=== PATIENT | male | born 1945 | race Caucasian/White ===

== ENCOUNTER → 2018-07-26 | Outpatient (CLI) | payer MEDICARE ==
--- NOTE | 2018-07-26 12:28 | XR ---
EXAMINATION TYPE: XR ribs LT w pa chest xray DATE OF EXAM: 07/26/2018 CLINICAL HISTORY: Left lower rib pain for 2 months. TECHNIQUE: Single frontal view of the chest is obtained. A frontal and oblique images of the left-ti ed ribs are acquired. COMPARISON: None FINDINGS: There are scattered calcified nodules are granulomas seen bilaterally. There is chronic pa renchymal change without suspicious focal air space opacity, pleural effusion, or pneumothorax seen. The cardiac silhouette size is within normal limits. Multilevel spurring in the thoracic spine is pr esent. Dedicated image of the left-sided ribs show no acute displaced fractures. Overlying soft tissue is un remarkable. IMPRESSION: 1. Chronic changes without acute pulmonary process. 2. No acute displaced left-sided rib fractures are seen.
== END | disposition home or self-care (01) ==
LOC: RADXRYALE 12:02
PROVIDERS: ATTEND Family Medicine
DX: R91.8 Other nonspecific abnormal finding of lung field (principal); R07.81 Pleurodynia; R07.89 Other chest pain

== ENCOUNTER → 2021-06-24 | Outpatient (CLI) | payer MEDICARE | END | disposition home or self-care (01) | LOC: RADNMMAIN 10:19 | PROVIDERS: ATTEND Family Medicine | DX: Z53.9 Procedure and treatment not carried out, unspecified reason (principal) ==

== ENCOUNTER 2021-08-25 05:50 | Day surgery (SDC) | payer MEDICARE ==
[2021-08-23 14:34] VITALS: BMI 31.8
[~2021-08-25 05:50] MED LIST: ALPRAZolam 0.25 MG TAB PO PRN; ALPRAZolam 0.5 MG TAB PO PRN; ASPIRIN 325 MG TAB PO STA; ATORVASTATIN 80 MG TAB PO STA; HEPARIN SODIUM,PORCINE 10,000 UNIT in SODIUM CHLORIDE 0.9% 1,000 ML IRRIGATION PRN; HEPARIN SODIUM,PORCINE 2,500 UNIT in SODIUM CHLORIDE 0.9% 250 ML IRRIGATION PRN; NITROGLYCERIN SL TABS 0.4 MG TAB SUBLINGUAL PRN; SODIUM CHLORIDE 0.9% 1,000 ML in EMPTY BAG 1 BAG IV SCH
[2021-08-25 06:16] VITALS: RESP 18; TEMP 98.4
[2021-08-25] MEDS ORDERED: SODIUM CHLORIDE 0.9% 1,000 ML IV ONE (06:18)
[2021-08-25 06:24] LABS: Basophils # (A) 0.1 k/uL (0-0.2); Basophils % (A) 1 %; Eosinophils # (A) 0.3 k/uL (0-0.7); Eosinophils % (A) 5 %; HCT 45.3 % (39.0-53.0); HGB 14.8 gm/dL (13.0-17.5); Lymphocytes # (A) 1.7 k/uL (1.0-4.8); Lymphocytes % (A) 27 %; MCH 29.6 pg (25.0-35.0); MCHC 32.6 g/dL (31.0-37.0); MCV 90.8 fL (80.0-100.0); Mean Platelet Volume 7.4; Monocytes # (A) 0.5 k/uL (0-1.0); Monocytes % (A) 7 %; Neutrophils # (A) 3.7 k/uL (1.3-7.7); Neutrophils % (A) 57 %; Platelet Count 224 k/uL (150-450); RBC 4.99 m/uL (4.30-5.90); RDW 12.8 % (11.5-15.5); WBC 6.6 k/uL (3.8-10.6)
[2021-08-25 07:03] LABS: Calcium 8.7 mg/dL (8.4-10.2); Potassium 4.2 mmol/L (3.5-5.1)
[2021-08-25] MEDS ORDERED: HEPARIN SODIUM 1,000 UN/ML (10ML VL) ONE (07:11)
[2021-08-25] MEDS ORDERED: VERAPAMIL 2.5 MG/ML 2 ML AMP ONE (07:11)
[2021-08-25] MEDS ORDERED: fentaNYL (PF) 50 MCG/ML 2 ML AMP ONE (07:35)
[2021-08-25] MEDS ORDERED: MIDAZOLAM 2 MG/2 ML VIAL IV ONE (07:38)
[2021-08-25] MEDS ORDERED: fentaNYL (PF) 50 MCG/ML 2 ML AMP IV ONE (07:38)
[2021-08-25] MEDS ORDERED: LIDOCAINE 1% INJ 10MG/ML (5 ML VIAL-PF) SQ ONE (07:44)
[2021-08-25] MEDS ORDERED: VERAPAMIL SYRINGE (5 MG/10 ML) INTRAARTER ONE (07:45)
[2021-08-25] MEDS ORDERED: HEPARIN SODIUM 1,000 UN/ML (10ML VL) IV ONE (07:46)
[2021-08-25] MEDS ORDERED: IOPAMIDOL-370 125ML BTL INJ ONE (07:55)
--- NOTE | 2021-08-25 08:04 | P.CARDCATH ---
Description of Procedure: PROCEDURES PERFORMED: Left heart catheterization, bilateral coronary angiography INDICATION: Abnormal stress test HISTORY: Patient is a pleasant 76-year-old male with history of hypertension, hyperlipidemia who has been fairly asymptomatic with mild dyspnea on exertion. He had a stress test where he could not his heart rate elevated enough and Lexiscan stress test showed concern of large area of infarction with isabel- infarct ischemia in the inferior distribution. Therefore heart catheterization was recommended. CONSENT:I have discussed the risks, benefits and alternative therapies for the above-mentioned procedure and for both sedation/analgesia as well as necessary blood product administration, if indicated, as they pertain to this patient. The patient has indicated understanding and acceptance of the risks and procedures discussed. PROCEDURE: After the risks, benefits and alternatives of the above mentioned procedure explained in detail with the patient, informed consent was obtained. Patient was taken to the catheterization lab and prepped and draped in usual fashion. 1% lidocaine was used to anesthetize the right radial artery. A 6- Danish sheath was placed in the right radial artery using modified Seldinger technique. Left coronary angiography was performed with a 5-Danish JL 3.5 catheter and right coronary angiography was performed with a 5-Danish JR5 catheter in various views. A 5-Danish FR5 catheter was inserted into the left ventricle and pressure measurements were obtained. The right radial sheath was removed and a TR band was placed with hemostasis achieved. The patient tolerated the procedure well. Patient was transported back to the post catheterization holding area in stable condition. Conscious Sedation: Patient was monitored under the direct supervision of vision of myself for conscious sedation using Versed and fentanyl for a total duration of 15 minutes HEMODYNAMICS: Aorta: 142/78 LV: 138/5, LVEDP 20 SELECTIVE CORONARY ARTERIOGRAPHY: LEFT MAIN: The left main is a large caliber vessel which gives rise to the LAD with the circumflex coming off the RCA. There is no significant stenosis. LEFT ANTERIOR DESCENDING CORONARY ARTERY: LAD is a large caliber vessel which wraps around to the apex. There is diffuse have a calcium with a proximal LAD 20-30% stenosis and a long mid LAD 50% stenosis. There is an ostial diagonal 160% stenosis which is small caliber. ANOMOLOUS CIRCUMFLEX CORONARY ARTERY: The circumflex comes off the proximal RCA and is a moderate caliber vessel without significant stenosis. RIGHT CORONARY ARTERY: The right coronary artery is a large caliber vessel which gives off a PDA and PLV branch and is the dominant vessel. There is proximal R CA 30% stenosis. FINAL IMPRESSION: 1. Mild to moderate nonobstructive CAD as described above including mid LAD 50% stenosis, ostial diagonal 1 60% stenosis, RCA 30% stenosis. 2. Anomalous circumflex coming off the RCA 3. Mildly elevated left sided filling pressures PLAN: 1. Aggressive risk factor modification per most recent ACC/AHA guidelines. 2. CAD is only mild to moderate and patient relatively asymptomatic. Continue with medical therapy. Increase cholesterol regimen.
[2021-08-25 11:58] VITALS: BP 106/56; PULSE 56
== END 2021-08-25 12:08 | disposition home or self-care (01) ==
LOC: CATHCVL 05:50
PROVIDERS: ATTEND Internal Medicine
DX: I25.10 Atherosclerotic heart disease of native coronary artery without angina pectoris (principal); I10 Essential (primary) hypertension; E78.5 Hyperlipidemia, unspecified; I44.7 Left bundle-branch block, unspecified; F17.210 Nicotine dependence, cigarettes, uncomplicated; Z20.822 Contact with and (suspected) exposure to COVID-19; Z79.899 Other long term (current) drug therapy
CPT/HCPCS: 93458; 80048; 85025; 87635; C1769 ×2; C1894; J2250; J2001; J3010; J1644; Q9967

== ENCOUNTER → 2022-10-10 | Outpatient (CLI) | payer MEDICARE ==
--- NOTE | 2022-10-10 08:58 | XR ---
EXAMINATION TYPE: XR shoulder complete RT DATE OF EXAM: 10/10/2022 8:50 AM INDICATION: Patient age:Male; 77 years old; Reason for study: [id number] RT SHLD PAIN; COMPARISON: Chest radiograph 07/26/2018 TECHNIQUE: The right shoulder was examined in AP, internally rotated and scapular Y projections. . FINDINGS: No evidence of acute osseous pathology, joint dislocation, or soft tissue swelling. No significant linda int space narrowing or spurring. Multiple calcified granulomas noted within the chest redemonstrated. Multiple calcified granulomas within the visualized chest. IMPRESSION: No acute osseous pathology.
== END | disposition home or self-care (01) ==
LOC: RADXRYALE 08:36
PROVIDERS: ATTEND Family Medicine
DX: M25.511 Pain in right shoulder (principal)

== ENCOUNTER 2022-10-14 12:07 | Inpatient (IN) | payer MEDICARE ==
--- NOTE | 2022-10-14 12:42 | ED ---
General Adult HPI - General Chief complaint: Arrhythmia/Palpitations Stated complaint: Bradycardia Time Seen by Provider: 10/14/22 12:26 Source: patient, RN notes reviewed Mode of arrival: ambulatory Limitations: no limitations - History of Present Illness Initial comments: Patient is a pleasant 77-year-old male presenting to the emergency department [facility] concern for bradycardia. No history of similar symptoms previously. Patient has been lightheaded for the past week. Patient did cut was doctor on Sunday and was told his heart rate was 35. Patient was advised to hold his metoprolol here patient is unclear if he has been doing that or not. Patient does have some fatigue associated with his lightheadedness. Patient has also some very mild exertional dyspnea. No chest pain. No history of similar symptoms previously. - Related Data Home Medications Medication Instructions Recorded Confirmed Aspirin [Adult Low Dose Aspirin EC] 81 mg PO DAILY 08/23/21 08/25/21 Cholecalciferol [Vitamin D3 (25 25 mcg PO DAILY 08/23/21 08/25/21 Mcg = 1000 Iu)] Lisinopril-Hctz 20-12.5 mg 1 tab PO DAILY 08/23/21 08/25/21 [Zestoretic 20-12.5] Metoprolol Succinate [Metoprolol 12.5 mg PO DAILY 08/23/21 08/25/21 Succinate ER] [place]-3/Dha/Epa/Fish Oil [Fish Oil 1 cap PO DAILY 08/23/21 08/25/21 1,000 mg Softgel] Previous Rx's Medication Instructions Recorded Atorvastatin [Lipitor] 40 mg PO DAILY #90 tablet 08/25/21 Allergies Allergy/AdvReac Type Severity Reaction Status Date / Time No Known Allergies Allergy Verified 08/25/21 06:05 Review of Systems ROS Statement: Those systems with pertinent positive or pertinent negative responses have been documented in the HPI. ROS Other: All systems not noted in ROS Statement are negative. Constitutional: Denies: fever Eyes: Denies: eye pain ENT: Denies: ear pain Respiratory: Reports: as per HPI. Denies: cough Cardiovascular: Reports: dyspnea on exertion. Denies: chest pain, palpitations Endocrine: Reports: fatigue Gastrointestinal: Denies: abdominal pain Genitourinary: Denies: dysuria Musculoskeletal: Denies: back pain Skin: Denies: rash Neurological: Denies: weakness Past Medical History Past Medical History: Hyperlipidemia, Hypertension Additional Past Medical History / Comment(s): See Dr Frey's H&P. History of Any Multi-Drug Resistant Organisms: None Reported Past Surgical History: No Surgical Hx Reported Additional Past Surgical History / Comment(s): Colonoscopy. [place] teeth extracted. Past Anesthesia/Blood Transfusion Reactions: Motion Sickness Past Psychological History: No Psychological Hx Reported Smoking Status: Former smoker Past Alcohol Use History: Daily Past Drug Use History: None Reported - Past Family History Mother Family Medical History: Cancer General Exam Limitations: no limitations General appearance: alert, in no apparent distress Head exam: Present: normocephalic Eye exam: Present: normal appearance Neck exam: Present: normal inspection Respiratory exam: Present: normal lung sounds bilaterally Cardiovascular Exam: Present: bradycardia, normal heart sounds Expanded Peripheral pulses: 2+: Radial (R), Radial (L), Dorsalis Pedis (R), Dorsalis Pedis (L) GI/Abdominal exam: Present: soft. Absent: tenderness Extremities exam: Present: normal inspection. Absent: pedal edema, calf tenderness Neurological exam: Present: alert Psychiatric exam: Present: normal affect, normal mood Skin exam: Present: normal color Course Vital Signs 10/14/22 10/14/22 10/14/22 12:18 12:56 13:00 Temperature 98.1 F Pulse Rate 35 L 33 L 35 L Pulse Rate [ Heavy Equipment Service Technician ] Respiratory 18 Rate Blood Pressure 151/60 176/81 176/81 O2 Sat by Pulse 97 94 L 95 Oximetry 10/14/22 10/14/22 10/14/22 13:05 13:10 13:20 Temperature Pulse Rate 33 L 33 L 35 L Pulse Rate [ Heavy Equipment Service Technician ] Respiratory 20 Rate Blood Pressure 176/81 166/83 O2 Sat by Pulse 97 94 L 99 Oximetry 10/14/22 10/14/22 10/14/22 13:31 13:40 13:45 Temperature Pulse Rate 33 L 33 L Pulse Rate [ 33 L Heavy Equipment Service Technician ] Respiratory Rate Blood Pressure 179/70 179/70 O2 Sat by Pulse 100 99 Oximetry 10/14/22 10/14/22 10/14/22 13:47 13:50 14:00 Temperature Pulse Rate 41 L 33 L Pulse Rate [ Heavy Equipment Service Technician ] Respiratory 20 Rate Blood Pressure 179/70 179/70 O2 Sat by Pulse 99 99 Oximetry 0810/14/22 10/14/22 14:10 14:20 14:30 Temperature Pulse Rate 33 L 33 L 33 L Pulse Rate [ Heavy Equipment Service Technician ] Respiratory Rate Blood Pressure 179/74 179/74 179/74 O2 Sat by Pulse 98 98 99 Oximetry 10/14/22 14:40 Temperature Pulse Rate 33 L Pulse Rate [ Heavy Equipment Service Technician ] Respiratory Rate Blood Pressure 142/68 O2 Sat by Pulse 98 Oximetry - Reevaluation(s) Reevaluation #1: 10/14/22 12:42 EKG #2 also interpreted by myself shows third-degree heart block with rate of 33. Right axis. Intraventricular conduction delay. Inferior T wave inversion. EKG Findings - EKG Results: EKG: interpreted by NATASHAD (3 heart block with rate of 38. Right axis. Intraventricular conduction delay. Inferior T wave inversion.) Medical Decision Making - Medical Decision Making Was pt. sent in by a medical professional or institution (, PA, WELDING INSPECTOR, urgent care, hospital, or senior care...) When possible be specific @ -Patient was sent in by Dr. Lopez me his office Did you speak to anyone other than the patient for history (EMS, parent, family, police, friend...)? What history was obtained from this source @ -Family is present and helps provide history including recent primary care physician visit Did you review nursing and triage notes (agree or disagree)? Why? @ -I reviewed and agree with nursing and triage notes Were old charts reviewed (outside hosp., previous admission, EMS record, old EKG, old radiological studies, urgent care reports/EKG's, senior care records)? Report findings @ -No old charts were reviewed Differential Diagnosis (chest pain, altered mental status, abdominal pain women, abdominal pain men, vaginal bleeding, weakness, fever, dyspnea, syncope, headache, dizziness, GI bleed, back pain, seizure, CVA, palpatations, mental health, musculoskeletal)? @ -Differential Palpitations Ventricular arrhythmias, atrial arrhythmias, myocardial infarction, anemia, thyrotoxicosis, electrolyte imbalance, hypokalemia, pulmonary embolism, pulmonary disease, drugs, alcohol, anxiety, stress.... This is not meant to be an all-inclusive list. EKG interpreted by me (3pts min.). @ -As above X-rays interpreted by me (1pt min.). @ -Chest x-ray reveals no acute process some chronic changes. CT interpreted by me (1pt min.). @ -None done U/S interpreted by me (1pt. min.). @ -None done What testing was considered but not performed or refused? (CT, X-rays, U/S, labs)? Why? @ -None What meds were considered but not given or refused? Why? @ -None Did you discuss the management of the patient with other professionals (professionals i.e. DrMarilu, PA, WELDING INSPECTOR, lab, RT, psych nurse, rn social work, telehealth director, teacher, campus security officer, case filler)? Give summary @ -Case was discussed earlier with Dr. Campbell who will consult. Case also discussed with Dr. Mora, who will admit covering Dr. Lopez me Was smoking cessation discussed for >3mins.? @ -No Was critical care preformed (if so, how long)? @ -No Were there social determinants of health that impacted care today? How? (Homelessness, low income, unemployed, alcoholism, drug addiction, transportation, low edu. Level, literacy, decrease access to med. care, correction, rehab)? @ -No Was there de-escalation of care discussed even if they declined (Discuss DNR or withdrawal of care, Hospice)? DNR status @ -No What co-morbidities impacted this encounter? (DM, HTN, Smoking, COPD, CAD, Cancer, CVA, ARF, Chemo, Hep., AIDS, mental health diagnosis, sleep apnea, morbid obesity)? @ -None Was patient admitted / discharged? Hospital course, mention meds given and route, prescriptions, significant lab abnormalities, going to OR and other pertinent info. @ -Patient reevaluated. Patient and family updated on results and plan. Blood pressure has remained stable. Patient will be admitted. Admission orders written. Undiagnosed new problem with uncertain prognosis? @ -No Drug Therapy requiring intensive monitoring for toxicity (Heparin, Nitro, Insulin, Cardizem)? @ -No Were any procedures done? @ -No Diagnosis/symptom? @ -Heart block Acute, or Chronic, or Acute on Chronic? @ -Acute Uncomplicated (without systemic symptoms) or Complicated (systemic symptoms)? @ -default Side effects of treatment? @ -No Exacerbation, Progression, or Severe Exacerbation? @ -No Poses a threat to life or bodily function? How? (Chest pain, [place], [place], pneumonia, PE, COPD, DKA, ARF, appy, cholecystitis, CVA, Diverticulitis, Homicidal, Suicidal, threat to staff... and all critical care pts) @ -No - Lab Data Result diagrams: 10/14/22 12:35 10/14/22 12:35 Lab Results 10/14/22 10/14/22 10/14/22 Range/Units 12:35 12:35 12:35 WBC 8.7 (3.8-10.6) k/uL RBC 4.90 (4.30-5.90) m/uL Hgb 14.5 (13.0-17.5) gm/dL Hct 43.2 (39.0-53.0) % MCV 88.2 (80.0-100.0) fL MCH 29.6 (25.0-35.0) pg MCHC 33.6 (31.0-37.0) g/dL RDW 13.0 (11.5-15.5) % Plt Count 223 (150-450) k/uL MPV 8.2 Neutrophils % 73 % Lymphocytes % 17 % Monocytes % 7 % Eosinophils % 1 % Basophils % 0 % Neutrophils # 6.3 (1.3-7.7) k/uL Lymphocytes # 1.5 (1.0-4.8) k/uL Monocytes # 0.6 (0-1.0) k/uL Eosinophils # 0.1 (0-0.7) k/uL Basophils # 0.0 (0-0.2) k/uL PT 11.0 (9.0-12.0) sec INR 1.0 (<1.2) APTT 22.2 (22.0-30.0) sec Sodium 142 (137-145) mmol/L Potassium 4.8 (3.5-5.1) mmol/L Chloride 102 (98-107) mmol/L Carbon Dioxide 28 (22-30) mmol/L Anion Gap 12 mmol/L BUN 21 H (9-20) mg/dL Creatinine 0.87 (0.66-1.25) mg/dL Est GFR (CKD-EPI)AfAm >90 (>60 ml/min/1.73 sqM) Est GFR (CKD-EPI)NonAf 82 (>60 ml/min/1.73 sqM) Glucose 101 H (74-99) mg/dL Calcium 9.4 (8.4-10.2) mg/dL Magnesium 1.9 (1.6-2.3) mg/dL Total Bilirubin 0.7 (0.2-1.3) mg/dL AST 24 (17-59) U/L ALT 33 (4-49) U/L Alkaline Phosphatase 87 (38-126) U/L Troponin I (0.000-0.034) ng/mL Total Protein 7.6 (6.3-8.2) g/dL Albumin 4.3 (3.5-5.0) g/dL TSH 0.969 (0.465-4.680) mIU/L Free T4 1.04 (0.78-2.19) ng/dL Free T3 pg/mL 3.8 (2.8-5.3) pg/ml 10/14/22 Range/Units 12:35 WBC (3.8-10.6) k/uL RBC (4.30-5.90) m/uL Hgb (13.0-17.5) gm/dL Hct (39.0-53.0) % MCV (80.0-100.0) fL MCH (25.0-35.0) pg MCHC (31.0-37.0) g/dL RDW (11.5-15.5) % Plt Count (150-450) k/uL MPV Neutrophils % % Lymphocytes % % Monocytes % % Eosinophils % % Basophils % % Neutrophils # (1.3-7.7) k/uL Lymphocytes # (1.0-4.8) k/uL Monocytes # (0-1.0) k/uL Eosinophils # (0-0.7) k/uL Basophils # (0-0.2) k/uL PT (9.0-12.0) sec INR (<1.2) APTT (22.0-30.0) sec Sodium (137-145) mmol/L Potassium (3.5-5.1) mmol/L Chloride (98-107) mmol/L Carbon Dioxide (22-30) mmol/L Anion Gap mmol/L BUN (9-20) mg/dL Creatinine (0.66-1.25) mg/dL Est GFR (CKD-EPI)AfAm (>60 ml/min/1.73 sqM) Est GFR (CKD-EPI)NonAf (>60 ml/min/1.73 sqM) Glucose (74-99) mg/dL Calcium (8.4-10.2) mg/dL Magnesium (1.6-2.3) mg/dL Total Bilirubin (0.2-1.3) mg/dL AST (17-59) U/L ALT (4-49) U/L Alkaline Phosphatase (38-126) U/L Troponin I <0.012 (0.000-0.034) ng/mL Total Protein (6.3-8.2) g/dL Albumin (3.5-5.0) g/dL TSH (0.465-4.680) mIU/L Free T4 (0.78-2.19) ng/dL Free T3 pg/mL (2.8-5.3) pg/ml Disposition Clinical Impression: Heart block Disposition: ADMITTED IP TO THIS HOSP Is patient prescribed a controlled substance at d/c from ED?: No Referrals: Manolo Torres DO [Primary Care Provider] - 1-2 days Time of Disposition: 16:11
--- NOTE | 2022-10-14 13:53 | XR ---
EXAMINATION TYPE: XR chest 1V portable DATE OF EXAM: 10/14/2022 1:38 PM COMPARISON: 07/26/2018 TECHNIQUE: XR chest 1V portable Portable AP radiograph of the chest. CLINICAL INDICATION:Male, 77 years old with history of dysrhythmia; FINDINGS: Patient is rotated which was evaluation. Lungs/Pleura: There is no evidence of pleural effusion, focal consolidation, or pneumothorax. Multip le calcified granulomas. Chronic senescent parenchyma changes. Linear scarring atelectasis within the left lung base. Pulmonary vascularity: Unremarkable. Heart/mediastinum: Cardiomediastinal silhouette is unremarkable. Musculoskeletal: No acute osseous pathology. IMPRESSION: Chronic changes without evidence for acute process.
[2022-10-14 14:04] LABS: Basophils % (A) 0 %; Eosinophils # (A) 0.1 k/uL (0-0.7); Eosinophils % (A) 1 %; HCT 43.2 % (39.0-53.0); HGB 14.5 gm/dL (13.0-17.5); Lymphocytes # (A) 1.5 k/uL (1.0-4.8); Lymphocytes % (A) 17 %; MCH 29.6 pg (25.0-35.0); MCHC 33.6 g/dL (31.0-37.0); MCV 88.2 fL (80.0-100.0); Mean Platelet Volume 8.2; Monocytes # (A) 0.6 k/uL (0-1.0); Monocytes % (A) 7 %; Neutrophils # (A) 6.3 k/uL (1.3-7.7); Neutrophils % (A) 73 %; Platelet Count 223 k/uL (150-450); WBC 8.7 k/uL (3.8-10.6)
[2022-10-14 14:20] LABS: Partial Thromboplastin Time 22.2 sec (22.0-30.0)
[2022-10-14 14:34] LABS: T4, Free (Free Thyroxine) 1.04 ng/dL (0.78-2.19)
[2022-10-14 15:20] LABS: ALT 33 U/L (4-49); AST 24 U/L (17-59); African American GFR (CKD) >90 (>60 ml/min/1.73 sqM); Albumin 4.3 g/dL (3.5-5.0); Alkaline Phosphatase 87 U/L (38-126); Anion Gap 12 mmol/L; Blood Urea Nitrogen 21 mg/dL (9-20); Calcium 9.4 mg/dL (8.4-10.2); Carbon Dioxide 28 mmol/L (22-30); Chloride 102 mmol/L (98-107); Glucose 101 mg/dL (74-99); Magnesium 1.9 mg/dL (1.6-2.3); Non-African American GFR(CKD) 82 (>60 ml/min/1.73 sqM); Potassium 4.8 mmol/L (3.5-5.1); Sodium 142 mmol/L (137-145); Total Bilirubin 0.7 mg/dL (0.2-1.3); Total Protein 7.6 g/dL (6.3-8.2)
[2022-10-14] MEDS ORDERED: NALOXONE 0.4 MG/ML 1 ML VIAL IV PRN (16:12)
[2022-10-14] MEDS: SODIUM CHLORIDE 0.9% 1,000 ML IV SCH (16:29)
--- NOTE | 2022-10-14 17:27 | P.HPIM ---
History of Present Illness H&P Date: 10/14/22 Patient is a 68-year-old male with history of hypertension, dyslipidemia, and prior tobacco abuse who presented to the ER at the direction of Dr. Torres due to bradycardia. On arrival to the ER his heart rate was 35 and blood pressure was 151/60. Laboratory analysis was remarkable for BUN of 21, troponin was negative at less than 0.012. Chest x-ray showed chronic changes without any acute process. EKG showed HR of 33 with high grade AV block. The ED physician called cardiol and arrangements were made for admission. Cardiac cath 08/17-- mild non obstructive CAD wiht mid LAD stenosis of 50%, ostial diagonal stenosis of 60%, and RCA stenosis of 30% Patient seen and examined at bedside. He reports that he injured his right shoulder late last week and it was bothering him so he mated appointment with Dr. Torres on Sunday. During his exam there he was found to have a heart rate of 35. They instructed him to no longer take his metoprolol and his last dose was Sunday evening. He continued to watch his pulse at home and it remained in the 30s he therefore re-presented to the office today. He was found to have heart rates in the 30s with possible third-degree heart block and was instructed to come to the ER. He does report that for the last 2-3 weeks he has had increased fatigue and decreased exercise tolerance. He has also been sleeping more often than normal and felt overall fatigued. This morning he did note slight fogginess. He has no other complaints no shortness of breath, chest pain, feelings of palpitations, diaphoresis, or syncopal episodes. Vital signs reviewed General: nontoxic, no distress, appears at stated age Derm: warm, dry Eyes: EOMI, no lid lag, anicteric sclera, pupils equal round reactive to light ENT: Nose and ears atraumatic, no thrush, no pharyngeal erythema Cardiovascular: S1S2 reg, no murmur, positive posterior tibial pulse bilateral, no edema, capillary refill less than 2 seconds Lungs: clear to auscultation bilateral, no rhonchi, no rales, no wheeze, no accessory muscle use Abdominal: soft, nontender to palpation, no guarding, no appreciable organomegaly, normal bowel sounds Ext: no gross muscle atrophy, muscle strength 5 out of 5 in all 4 extremities, no contractures Neuro: CN II-XII grossly intact, light touch intact all 4 extremities, finger to nose within normal limits, Psych: Alert, oriented, appropriate affect Assessment/Plan: Bradyacardia with complete hert block HLD HLD - d/w ED physician and admit to selective care. - tele - consult cardio - continue to hold BB40 mg at night - keep pacer pads in place - fall precautions - Hold lisinopril because he is likely blood pressure dependent for perfusion at this time - Lipitor Imaging: as per HPI Data Review: as per HPI The patient is admitted with an anticipated greater than 2 midnight stay for evaluation of third degree heart bloack Surrogate decision-maker: Daughter CODE STATUS: Full DVT prophylaxis: Heparin Anticipated discharge date: Pending Clinical Course Anticipated discharge place: Pending Clinical Course This dictation was prepared using [employer] voice recognition software. Though every attempt is made to correct errors during dictation some may still exist. Past Medical History Past Medical History: Hyperlipidemia, Hypertension Additional Past Medical History / Comment(s): See Dr Frey's H&P. History of Any Multi-Drug Resistant Organisms: None Reported Past Surgical History: No Surgical Hx Reported Additional Past Surgical History / Comment(s): Colonoscopy. Walker teeth extracted. Past Anesthesia/Blood Transfusion Reactions: Motion Sickness Past Psychological History: No Psychological Hx Reported Smoking Status: Former smoker Past Alcohol Use History: Daily Past Drug Use History: None Reported - Past Family History Mother Family Medical History: Cancer Medications and Allergies Home Medications Medication Instructions Recorded Confirmed Type Cholecalciferol [Vitamin D3 (25 25 mcg PO DAILY 08/23/21 10/14/22 History Mcg = 1000 Iu)] Lisinopril-Hctz 20-12.5 mg 1 tab PO DAILY 08/23/21 10/14/22 History [Zestoretic 20-12.5] [place]-3/Dha/Epa/Fish Oil [Fish Oil 1 cap PO DAILY 08/23/21 10/14/22 History 1,000 mg Softgel] Atorvastatin [Lipitor] 40 mg PO HS 10/14/22 10/14/22 History Multivitamins, Thera [Multivitamin 1 tab PO DAILY 10/14/22 10/14/22 History (formulary)] Zinc Gluconate [Zinc] 50 mg PO DAILY 10/14/22 10/14/22 History methylPREDNISolone Dose Pack See Taper PO DIRECTED 10/14/22 10/14/22 History [Medrol Dose Pack] Allergies Allergy/AdvReac Type Severity Reaction Status Date / Time No Known Allergies Allergy Verified 10/14/22 16:24 Physical Exam Osteopathic Statement: *. No significant issues noted on an osteopathic structural exam other than those noted in the History and Physical/Consult. Vitals: Vital Signs Temp Pulse Pulse Resp BP Pulse Ox 10/14/22 16:20 34 L 149/84 97 10/14/22 16:10 34 L 149/84 95 10/14/22 16:00 33 L 16 160/44 98 10/14/22 15:50 33 L 160/44 95 10/14/22 15:40 33 L 160/44 96 10/14/22 15:30 33 L 139/66 95 10/14/22 15:20 34 L 139/66 96 10/14/22 15:10 33 L 139/66 96 10/14/22 15:00 33 L 20 142/68 98 10/14/22 14:50 32 L 142/68 98 10/14/22 14:40 33 L 142/68 98 10/14/22 14:30 33 L 179/74 99 10/14/22 14:20 33 L 179/74 98 10/14/22 14:10 33 L 179/74 98 10/14/22 14:00 33 L 179/70 99 10/14/22 13:50 41 L 179/70 99 10/14/22 13:47 20 10/14/22 13:45 33 L 10/14/22 13:40 33 L 179/70 99 10/14/22 13:31 33 L 179/70 100 10/14/22 13:20 35 L 166/83 99 10/14/22 13:10 33 L 94 L 10/14/22 13:05 33 L 20 176/81 97 10/14/22 13:00 35 L 176/81 95 10/14/22 12:56 33 L 176/81 94 L 10/14/22 12:18 98.1 F 35 L 18 151/60 97 Intake and Output 10/14/22 10/14/22 10/14/22 06:59 14:59 22:59 Other: Weight 99.79 kg Results CBC & Chem 7: 10/14/22 12:35 10/14/22 12:35 Labs: Abnormal Lab Results - Last 24 Hours (Table) 10/14/22 Range/Units 12:35 BUN 21 H (9-20) mg/dL Glucose 101 H (74-99) mg/dL
[2022-10-14] MEDS ORDERED: ACETAMINOPHEN TAB 325 MG TAB PO PRN (17:54)
[2022-10-14] MEDS ORDERED: bisacodyL 5 MG TABLET.DR PO PRN (17:54)
[2022-10-14] MEDS ORDERED: MELATONIN 3 MG TABLET PO PRN (17:54)
[2022-10-14] MEDS: ATORVASTATIN 40 MG TAB PO SCH (19:53)
[2022-10-14] MEDS: HEPARIN SODIUM,PORCINE 5,000 UNIT/ML 1 ML VIAL SQ SCH (23:25)
--- NOTE | 2022-10-15 07:40 | P.CRDCN ---
History of Present Illness Consult date: 10/15/22 Chief complaint: Fatigue and tiredness History of present illness: The patient is a pleasant 77-year-old gentleman who sees Dr. Ahuja with a past medical history significant for no one mild to moderate nonobstructive CAD based on heart catheterization recently as well as hypertension and dyslipidemia who presented to the hospital after he was advised to go because of "low heart rate". The patient was seen at his primary care physician office and he underwent vital signs measurements and he was found to have low heart rate and low blood pressure. At that point an EKG was performed and the patient was sent to the hospital with the EKG from the hospital revealed what it seems to be complete heart block with narrow complex QRS. The patient reports no dizziness or lightheadedness or presyncope or syncope and no symptoms of chest pain or chest discomfort but he feels tired and fatigued and has no energy. He was receiving any miriam irma agents was metoprolol but the last dose was given more than 3 days ago. The rest of the blood work came in to be unremarkable. Currently he is asymptomatic. Currently he is medically stable beside marginally low blood pressure on one measurements. TSH and free T4 were checked and came in to be unremarkable. Echo still pending. The examination is remarkable for regular rhythm with clear breathing sounds bilaterally and no lower extremity edema noted. Assessment Complete heart block Bradycardia secondary to complete heart block Symptoms of fatigue and tiredness secondary to the above Coronary artery disease nonobstructive on recent heart catheterization Multiple comorbid conditions including hypertension and dyslipidemia Plan The patient need to undergo permanent pacemaker implantation Avoid any AV miriam irma agents Thyroid dysfunction has been ruled out Obtain an echo to assess the current status of the ejection fraction The patient need to be transferred to the intensive. Proceed with temporary pacemaker later on today Follow-up with the patient Past Medical History Past Medical History: Hyperlipidemia, Hypertension Additional Past Medical History / Comment(s): See Dr Frey's H&P. History of Any Multi-Drug Resistant Organisms: None Reported Past Surgical History: No Surgical Hx Reported Additional Past Surgical History / Comment(s): Colonoscopy. [place] teeth extracted. Past Anesthesia/Blood Transfusion Reactions: Motion Sickness Past Psychological History: No Psychological Hx Reported Smoking Status: Former smoker Past Alcohol Use History: Daily Past Drug Use History: None Reported - Past Family History Mother Family Medical History: Cancer Medications and Allergies Home Medications Medication Instructions Recorded Confirmed Type Cholecalciferol [Vitamin D3 (25 25 mcg PO DAILY 08/23/21 10/14/22 History Mcg = 1000 Iu)] Lisinopril-Hctz 20-12.5 mg 1 tab PO DAILY 08/23/21 10/14/22 History [Zestoretic 20-12.5] [place]-3/Dha/Epa/Fish Oil [Fish Oil 1 cap PO DAILY 08/23/21 10/14/22 History 1,000 mg Softgel] Atorvastatin [Lipitor] 40 mg PO HS 10/14/22 10/14/22 History Multivitamins, Thera [Multivitamin 1 tab PO DAILY 10/14/22 10/14/22 History (formulary)] Zinc Gluconate [Zinc] 50 mg PO DAILY 10/14/22 10/14/22 History methylPREDNISolone Dose Pack See Taper PO DIRECTED 10/14/22 10/14/22 History [Medrol Dose Pack] Allergies Allergy/AdvReac Type Severity Reaction Status Date / Time No Known Allergies Allergy Verified 10/14/22 16:24 Physical Exam Vitals: Vital Signs Temp Pulse Pulse Resp BP BP Pulse Ox 10/15/22 04:00 31 L 16 160/82 94 L 10/15/22 00:00 35 L 16 102/56 93 L 10/14/22 20:00 98.2 F 40 L 16 144/63 93 L 10/14/22 18:45 38 L 18 134/56 96 10/14/22 17:28 35 L 16 140/60 98 10/14/22 16:20 34 L 149/84 97 10/14/22 16:10 34 L 149/84 95 10/14/22 16:00 33 L 16 160/44 98 10/14/22 15:50 33 L 160/44 95 10/14/22 15:40 33 L 160/44 96 10/14/22 15:30 33 L 139/66 95 10/14/22 15:20 34 L 139/66 96 10/14/22 15:10 33 L 139/66 96 10/14/22 15:00 33 L 20 142/68 98 10/14/22 14:50 32 L 142/68 98 10/14/22 14:40 33 L 142/68 98 10/14/22 14:30 33 L 179/74 99 10/14/22 14:20 33 L 179/74 98 10/14/22 14:10 33 L 179/74 98 10/14/22 14:00 33 L 179/70 99 10/14/22 13:50 41 L 179/70 99 10/14/22 13:47 20 10/14/22 13:45 33 L 10/14/22 13:40 33 L 179/70 99 10/14/22 13:31 33 L 179/70 100 10/14/22 13:20 35 L 166/83 99 10/14/22 13:10 33 L 94 L 10/14/22 13:05 33 L 20 176/81 97 10/14/22 13:00 35 L 176/81 95 10/14/22 12:56 33 L 176/81 94 L 10/14/22 12:18 98.1 F 35 L 18 151/60 97 Intake and Output 10/14/22 10/15/22 10/15/22 22:59 06:59 14:59 Intake Total 540 Balance 540 Intake: Oral 540 Other: Voiding Method Urinal Urinal # Voids 1 Weight 99.79 kg Results 10/14/22 12:35 10/14/22 12:35 Cardiac Enzymes 10/14/22 10/14/22 10/14/22 Range/Units 12:35 12:35 21:29 AST 24 (17-59) U/L Troponin I <0.012 <0.012 (0.000-0.034) ng/mL 10/14/22 Range/Units 23:49 AST (17-59) U/L Troponin I <0.012 (0.000-0.034) ng/mL Coagulation 10/14/22 Range/Units 12:35 PT 11.0 (9.0-12.0) sec APTT 22.2 (22.0-30.0) sec CBC 10/14/22 Range/Units 12:35 WBC 8.7 (3.8-10.6) k/uL RBC 4.90 (4.30-5.90) m/uL Hgb 14.5 (13.0-17.5) gm/dL Hct 43.2 (39.0-53.0) % Plt Count 223 (150-450) k/uL Comprehensive Metabolic Panel 10/14/22 Range/Units 12:35 Sodium 142 (137-145) mmol/L Potassium 4.8 (3.5-5.1) mmol/L Chloride 102 (98-107) mmol/L Carbon Dioxide 28 (22-30) mmol/L BUN 21 H (9-20) mg/dL Creatinine 0.87 (0.66-1.25) mg/dL Glucose 101 H (74-99) mg/dL Calcium 9.4 (8.4-10.2) mg/dL AST 24 (17-59) U/L ALT 33 (4-49) U/L Alkaline Phosphatase 87 (38-126) U/L Total Protein 7.6 (6.3-8.2) g/dL Albumin 4.3 (3.5-5.0) g/dL Current Medications Generic Name Dose Route Start Last Admin Trade Name Freq PRN Reason Stop Dose Admin Acetaminophen 650 mg 10/14/22 17:54 Acetaminophen Tab 325 Mg Tab PO Q6HR PRN Mild Pain or Fever > 100.5 Atorvastatin Calcium 40 mg 10/14/22 21:00 10/14/22 19:53 Atorvastatin 40 Mg Tab PO 40 mg HS SAMANTA Administration Bisacodyl 5 mg 10/14/22 17:54 Bisacodyl 5 Mg Tablet.Dr PO DAILY PRN Constipation Heparin Sodium (Porcine) 5,000 unit 10/15/22 00:00 10/14/22 23:25 Heparin Sodium,Porcine 5,000 Unit/Ml 1 Ml Vial SQ 5,000 unit Q8HR [facility] Administration Sodium Chloride 1,000 mls @ 20 mls/hr 10/14/22 16:15 10/14/22 16:29 Saline 0.9% IV 20 mls/hr .Q24H [facility] Administration Melatonin 3 mg 10/14/22 17:54 Melatonin 3 Mg Tablet PO HS PRN Insomnia Methylprednisolone 32 mg 10/15/22 08:30 Methylprednisolone 4 Mg Tab PO 10/15/22 08:31 ONCE ONE Methylprednisolone 16 mg 10/16/22 08:30 Methylprednisolone 4 Mg Tab PO 10/16/22 08:31 ONCE ONE Naloxone HCl 0.2 mg 10/14/22 16:12 Naloxone 0.4 Mg/Ml 1 Ml Vial IV Q2M PRN Opioid Reversal Intake and Output 10/14/22 10/15/22 10/15/22 22:59 06:59 14:59 Intake Total 540 Balance 540 Intake: Oral 540 Other: Voiding Method Urinal Urinal # Voids 1 Weight 99.79 kg 10/14/22 12:35 10/14/22 12:35
[2022-10-15] MEDS: HEPARIN SODIUM,PORCINE 5,000 UNIT/ML 1 ML VIAL SQ SCH ×3 (08:28→23:43)
[2022-10-15] MEDS ORDERED: methylPREDNISolone 4 MG TAB PO ONE (08:30)
[2022-10-15] MEDS ORDERED: methylPREDNISolone 4 MG TAB TAPER PO SCH (09:00)
[2022-10-15 09:24] LABS: Glucose,Whole Blood 158 mg/dL (70-110)
[2022-10-15 11:29] LABS: HCT 43.2 % (39.0-53.0); HGB 14.5 gm/dL (13.0-17.5); MCH 29.4 pg (25.0-35.0); MCHC 33.5 g/dL (31.0-37.0); MCV 87.5 fL (80.0-100.0); Mean Platelet Volume 8.5; Platelet Count 246 k/uL (150-450); RBC 4.94 m/uL (4.30-5.90); RDW 13.2 % (11.5-15.5); WBC 9.8 k/uL (3.8-10.6)
[2022-10-15 11:58] LABS: African American GFR (CKD) >90 (>60 ml/min/1.73 sqM); Anion Gap 10 mmol/L; Blood Urea Nitrogen 21 mg/dL (9-20); Calcium 9.3 mg/dL (8.4-10.2); Carbon Dioxide 25 mmol/L (22-30); Chloride 103 mmol/L (98-107); Glucose 94 mg/dL (74-99); Non-African American GFR(CKD) 87 (>60 ml/min/1.73 sqM); Potassium 4.3 mmol/L (3.5-5.1); Sodium 138 mmol/L (137-145)
[2022-10-15] MEDS ORDERED: IV FLUID CONTINUATION 500 ML IV ONE (12:48)
[2022-10-15] MEDS ORDERED: LIDOCAINE 1% INJ 10MG/ML (20 ML MDV) ONE (12:53)
[2022-10-15] MEDS ORDERED: LIDOCAINE 1% INJ 10MG/ML (20 ML MDV) SQ ONE (13:09)
--- NOTE | 2022-10-15 13:38 | P.PCN ---
Date of Procedure: 10/15/22 Operative Findings: Transcutaneous temporary pacemaker Performing physician Arsh Campbell M.D. Procedure performed 1. Successful placement of transcutaneous temporary pacemaker from right femoral vein 2. Ultrasound-guided access of the right common femoral vein Indication Complete heart block Complication None Level of sedation Moderate to sedation length of 15 minutes Procedure description After obtaining an informed consent the patient was brought to the cardiac label operator. The right common femoral vein was cannulated using puncture technique under ultrasound guidance and the micro-puncture wire passed easily then I placed a 6-Fijian sheath at the right common femoral vein. Subsequently and under fluoroscopy guidance the pacer wire was advanced to the right ventricle. The patient has a balloontipped. It was positioned in the right ventricle under fluoroscopy guidance with setup of a heart rate of 60 and amp of 5. The procedure was completed was no complication Postprocedure management Permanent pacemaker to be placed tomorrow Follow-up with the patient
[2022-10-15] MEDS ORDERED: MORPHINE SULFATE 2 MG/ML SYRINGE IVP PRN (14:58)
--- NOTE | 2022-10-15 15:29 | P.PN ---
Subjective Progress Note Date: 10/15/22 (delayed charting seen at 1040) Patient is a 68-year-old male with history of hypertension, dyslipidemia, and prior tobacco abuse who presented to the ER at the direction of Dr. Torres due to bradycardia. On arrival to the ER his heart rate was 35 and blood pressure was 151/60. Laboratory analysis was remarkable for BUN of 21, troponin was negative at less than 0.012. Chest x-ray showed chronic changes without any acute process. EKG showed HR of 33 with high grade AV block. The ED physician called cardiology and arrangements were made for admission. He was monitored overnight and continued to be in third-degree heart block. He was seen by cardiology who recommended temporary venous pacemaker followed by permanent pacemaker. Patient seen and examined at bedside with daughter present. He did get slight dizziness when bending over to put his slippers on this morning. He denies any chest pain or shortness of breath overnight. He denies any syncopal episodes. Vital signs reviewed General: nontoxic, no distress, appears at stated age Cardiovascular: S1S2 bradycardia, no murmur, positive posterior tibial pulse bilateral, Lungs: CTA bilateral, no rhonchi, no rales , no accessory muscle use Abdominal: soft, nontender to palpation, no guarding, no appreciable or ganomegaly Ext: no gross muscle atrophy, no edema b/l lower extremities, no contractures Neuro: CN II-XI grossly intact, no focal neuro deficits Psych: Alert, oriented, appropriate affect Assessment/Plan: Bradyacardia with complete heart block HTN HLD -Cardiology recommendations reviewed: Continue to avoid any AV miriam blocking agents, temporary pacemaker today, followed up by permanent pacemaker implantation - continue to hold BB - Lipitor 40 mg at night - fall precautions - Hold lisinopril because patient is likely dependent on BP for perfusion can resume after pacemaker if needed Recent right shoulder strain - complete medrol taper. Imaging: None Data Review: Vitals reviewed afebrile for the last 24 hours. And they'll show temperature of 97.6, pulse 33, respirations 16, blood pressure 140/64, O2 sat 98% on room air Labs reviewed and remarkable for BUN 21 DVT prophylaxis: Heparin Discussed with: patient, nursing, patient family Anticipated discharge date: Pending clinical course Anticipated discharge place: Pending clinical course This dictation was prepared using [employer] voice recognition software. Though every attempt is made to correct errors during dictation some may still exist. Objective - Vital Signs Vital signs: Vital Signs Temp 97.8 F 10/15/22 14:00 Pulse 60 10/15/22 15:00 Resp 17 10/15/22 15:00 BP 124/90 10/15/22 15:00 Pulse Ox 94 L 10/15/22 15:00 FiO2 Intake & Output 10/14/22 10/15/22 10/15/22 18:59 06:59 18:59 Intake Total 540 565 Output Total 675 Balance 540 -110 Weight 99.79 kg Intake: IV 25 Intake, IV Titration 60 Amount Sodium Chloride 0.9% 1, 60 000 ml @ 20 mls/hr IV . Q24H [facility] Rx#:[id number] Oral 540 480 Output: Urine 675 Other: Voiding Method Urinal Toilet # Voids 1 1 - Labs CBC & Chem 7: 10/15/22 11:03 10/15/22 11:03 Labs: Abnormal Lab Results - Last 24 Hours (Table) 10/15/22 10/15/22 Range/Units 09:22 11:03 BUN 21 H (9-20) mg/dL POC Glucose (mg/dL) 158 H (70-110) mg/dL
[2022-10-15] MEDS: SODIUM CHLORIDE 0.9% 1,000 ML IV SCH (16:15)
[2022-10-15] MEDS: ATORVASTATIN 40 MG TAB PO SCH (20:04)
[2022-10-16] MEDS ORDERED: ONDANSETRON 4 MG/2 ML VIAL IVP STA (03:10)
[2022-10-16] MEDS: METOCLOPRAMIDE 5 MG/ML 2 ML VIAL IVP PRN ×2 (04:43→11:51)
[2022-10-16] MEDS ORDERED: methylPREDNISolone 4 MG TAB PO ONE (08:30)
[2022-10-16] MEDS: HEPARIN SODIUM,PORCINE 5,000 UNIT/ML 1 ML VIAL SQ SCH ×3 (09:22→23:45)
[2022-10-16] MEDS: ONDANSETRON 4 MG/2 ML VIAL IVP PRN ×2 (10:03→18:46)
--- NOTE | 2022-10-16 10:25 | P.PN ---
Subjective Progress Note Date: 10/16/22 Patient is a 68-year-old male with history of hypertension, dyslipidemia, and prior tobacco abuse who presented to the ER at the direction of Dr. Torres due to bradycardia. On arrival to the ER his heart rate was 35 and blood pressure was 151/60. Laboratory analysis was remarkable for BUN of 21, troponin was negative at less than 0.012. Chest x-ray showed chronic changes without any acute process. EKG showed HR of 33 with high grade AV block. The ED physician called cardiology and arrangements were made for admission. He was monitored overnight and continued to be in third-degree heart block. He was seen by cardiology who recommended temporary venous pacemaker followed by permanent pacemaker. The temporary venous pacemaker was placed on 10/15, and patient reported resolution of his dizziness after this was placed. Pt reports nausea/vomiting starting this morning. This mildly improved with zofran and reglan pushes. General: nontoxic, no distress, appears at stated age Lungs: symmetric chest expansion , no accessory muscle use Abdominal: soft, nontender to palpation, no guarding Ext: no gross muscle atrophy, no edema b/l lower extremities, no contractures Neuro: CN II-XI grossly intact, no focal neuro deficits Psych: Alert, oriented, appropriate affect Assessment/Plan: Bradyacardia with complete heart block HTN HLD -Cardiology recommendations reviewed: Continue to avoid any AV miriam blocking agents, temporary pacemaker, followed up by permanent pacemaker implantation -Had temporary pacemaker placed on 10/15 successfully and is pacing at 60 with amp of 5 - continue to hold BB - Lipitor 40 mg at night - fall precautions - Hold lisinopril because patient is likely dependent on BP for perfusion can resume after pacemaker if needed Recent right shoulder strain - complete medrol taper. Imaging: None Data Review: Vitals reviewed afebrile for the last 24 hours. And they'll show temperature of 99.0, pulse 60 - paced, blood pressure 153/107, O2 sat 94% on room air No labs to review today DVT prophylaxis: Heparin Discussed with: patient, nursing, patient family Anticipated discharge date: Pending clinical course Anticipated discharge place: Pending clinical course This dictation was prepared using [employer] voice recognition software. Though every attempt is made to correct errors during dictation some may still exist. Objective - Vital Signs Vital signs: Vital Signs Temp 99.0 F 10/16/22 08:00 Pulse 60 10/16/22 09:00 Resp 28 H 10/16/22 09:00 BP 153/107 10/16/22 09:00 Pulse Ox 94 L 10/16/22 08:15 FiO2 Intake & Output 10/15/22 10/16/22 10/16/22 18:59 06:59 18:59 Intake Total 865 240 60 Output Total 975 900 300 Balance -110 -660 -240 Weight 103.3 kg Intake: IV 25 40 Sodium Chloride 0.9% 1, 40 000 ml @ 20 mls/hr IV . Q24H [facility] Rx#:[id number] Intake, IV Titration 120 240 20 Amount Sodium Chloride 0.9% 1, 120 240 20 000 ml @ 20 mls/hr IV . Q24H [facility] Rx#:[id number] Oral 720 Output: Urine 975 400 200 Emesis 500 100 Other: Voiding Method Urinal Urinal Urinal # Voids 1 1 - Labs CBC & Chem 7: 10/15/22 11:03 10/15/22 11:03 Labs: Abnormal Lab Results - Last 24 Hours (Table) 10/15/22 Range/Units 11:03 BUN 21 H (9-20) mg/dL
--- NOTE | 2022-10-16 12:26 | CA ---
Transthoracic Echo Report Name: Rikki Joiner Age: 77 Gender: M : 1945 Exam Date: 10/16/2022 10:15 Exam Location: [facility] Ht (in): 71 Wt (lb): 221 Ordering Physician: Arsh Campbell MD ([id number]) Attending/Referring Phys: [facility] Idalia Rob RDCS Procedure CPT: Indications: Bradycardia Cardiac Hx: Technical Quality: Fair Contrast 1: Total Dose (mL): Contrast 2: Total Dose (mL): MEASUREMENTS (Male / Female) Normal Values 2D ECHO LV Diastolic Diameter PLAX 4.5 cm 4.2 - 5.9 / 3.9 - 5.3 cm LV Systolic Diameter PLAX 3.7 cm IVS Diastolic Thickness 1.3 cm 0.6 - 1.0 / 0.6 - 0.9 cm LVPW Diastolic Thickness 1.4 cm 0.6 - 1.0 / 0.6 - 0.9 cm LV Relative Wall Thickness 0.6 RV Internal Dim ED PLAX 4.0 cm LA Systolic Diameter LX 3.8 cm 3.0 - 4.0 / 2.7 - 3.8 cm LV Diastolic Volume MOD 4C 96.1 cm??? LV Systolic Volume MOD 4C 54.5 cm??? LV Ejection Fraction MOD 4C 43.3 % LV Cardiac Index MOD 4C 1101.3 cm???/min???m??? LV Diastolic Length 4C 8.1 cm LV Systolic Length 4C 7.3 cm LV Diastolic Volume MOD 2C 71.6 cm??? LV Systolic Volume MOD 2C 29.7 cm??? LV Ejection Fraction MOD 2C 58.6 % LV Cardiac Index MOD 2C 1109.7 cm???/min???m??? LV Diastolic Length 2C 7.8 cm LV Systolic Length 2C 6.5 cm LA Volume 56.6 cm??? 18 - 58 / 22 - 52 cm??? M-MODE Aortic Root Diameter MM 4.3 cm MV E Point Septal Separation 0.9 cm AV Cusp Separation MM 2.3 cm DOPPLER AV Peak Velocity 153.4 cm/s AV Peak Gradient 9.4 mmHg MV Area PHT 2.1 cm??? Mitral E Point Velocity 89.9 cm/s Mitral A Point Velocity 128.2 cm/s Mitral E to A Ratio 0.7 MV Deceleration Time 367.0 ms MV E' Velocity 6.9 cm/s Mitral E to MV E' Ratio 13.1 TR Peak Velocity 310.4 cm/s TR Peak Gradient 38.5 mmHg Right Ventricular Systolic Press 43.5 mmHg FINDINGS Left Ventricle Left ventricular ejection fraction is estimated at 50-55 %. Left ventricular cavity size normal. Mildly increased septal wall thickness. Right Ventricle Moderate right ventricular dilatation. Mild pulmonary hypertension. Right Atrium Normal right atrial size. Left Atrium Normal left atrial size. Mitral Valve Mitral annular calcification. No mitral stenosis, regurgitation or prolapse. Aortic Valve Aortic valve not well visualized. No aortic valve stenosis or regurgitation. Tricuspid Valve Structurally normal tricuspid valve. Mild tricuspid regurgitation. Pulmonic Valve Structurally normal pulmonic valve. No pulmonic regurgitation. Pericardium No pericardial effusion. Aorta Moderate aortic dilatation at the level of the sinotubular junction 43 mm CONCLUSIONS Normal LV systolic function RV dilation Technically difficult study with suboptimal windows Previewed by: Dr. Jeremy Adams MD (Electronically Signed) Final Date: 16 October 2022 12:25
[2022-10-16] MEDS ORDERED: PROCHLORPERAZINE INJ 10 MG/2 ML VIAL IVP PRN (13:31)
[2022-10-16] MEDS ORDERED: ceFAZolin 1,000 MG in SODIUM CHLORIDE 0.9% IRRIG BTL 250 ML IRRIGATION ONE (14:00)
[2022-10-16] MEDS ORDERED: SODIUM CHLORIDE 0.9% 500 ML 500 ML IV ONE (14:28)
[2022-10-16] MEDS ORDERED: IV FLUID CONTINUATION 1,000 ML IV ONE (14:28)
[2022-10-16] MEDS: MIDAZOLAM 2 MG/2 ML VIAL IVP ONE ×2 (14:28→15:24)
[2022-10-16] MEDS: fentaNYL (PF) 50 MCG/1 ML VIAL IVP ONE ×2 (14:29→15:25)
[2022-10-16] MEDS ORDERED: IOPAMIDOL-370 100ML BTL IVP ONE (14:29)
[2022-10-16] MEDS ORDERED: LIDOCAINE 1% INJ 10MG/ML (20 ML MDV) SQ ONE (14:30)
[2022-10-16] MEDS ORDERED: ACETAMINOPHEN TAB 325 MG TAB PO PRN (16:16)
--- NOTE | 2022-10-16 16:16 | P.PCN ---
Description of Procedure: CARDIOLOGY PROCEDURE NOTE Russian Language Instructor: Dr. Balbir Frey Procedure performed: Insertion dual chamber permanent pacemaker Site: Left subclavian Indications: Complete heart block Complications: None Blood Loss: Minimal Description of Procedure: After the risks, benefits, and alternatives of the above-mentioned procedure was explained in detail with the patient, informed consent was obtained. The patient was taken to the cardiac catheterization suite where the left subclavian area was sterily prepped and draped in the usual fashion. One percent lidocaine was used to anesthetize the left subclavian area. Twenty milliliters of Isoview 370 contrast was injected into the left antecubital vein to allow for direct visual ization of the left subclavian vein under fluoroscopy. A 1.5 inch incision was made utilizing a #15 blade in the left subclavian site. Hemostasis was made complete. Electrocautery along with digital blunt dissection was utilized to dissect to the level of the pectoralis muscle fascia and create a pocket large enough to accommodate the generator. A thin walled micro puncuture needle was used to cannulate the left subclavian vein. A guide-wire was inserted through the needle into the vascular lumen under fluoroscopic guidance. The needle was removed. Another thin walled micr puncture needle was used to again cannulate the left subclavian vein. A guide-wire was inserted through the needle into the vascular lumen under fluoroscopic guidance. The needle was removed and both guide-wires were attached to the field. A venous sheath and dilator were advanced over the guidewire into the vascular lumen under fluoroscopic guidance. The dilator and guidewire were then removed. A right ventricular bipolar lead was inserted into the sheath and advanced under fluoroscopic guidance into the right ventricle under fluoroscopic guidance. Adequate sensing and pacing thresholds were achieved and the lead was screwed into place in the RV apex. The sheath was then torn away. The lead collar was advanced and anchored into place utilizing #0 silk suture. Next, another venous sheath and dilator were advanced under fluoroscopic guidance into the vascular lumen over the guidewire. After removal of the dilator and guidewire, a right atrial bipolar lead was inserted into this sheath and advanced under fluoroscopic guidance into the right atrium. The lead was positioned into the right atrial appendage. Adequate sensing and pacing thresholds were then achieved with patient being in Aflutter at the time and the lead was screwed into place. The sheath was then torn away. The lead collar was advanced and anchored into place utilizing #0 silk suture. The leads were then inserted into the appropriate position into the generator. They were then secured with the setscrew provided. The leads and generator were inserted into the pocket with the leads posterior. The subcutaneous tissue was approximated utilizing #2.0 and 3.0 vicryl in an interrupted stitch fashion. The dermal layer was approximated utilizing #4.0 vicryl. The area was cleansed with sterile saline and dried. A sterile 4x4 dressing was applied and the patient was transferred to the post catheterization holding area in stable and satisfactory condition. The patient tolerated the procedure well. Generator Data Appraisal Coordinator: [employer] Brand: [id number] Juanita XT DR MRI Model #: W1DR01 Serial#: [id number] Right Atrial Bipolar Lead Data: Type: Active fixation lead Appraisal Coordinator: [employer] Model#: 5076-52 Serial Number: [id number] Right Ventricular Bipolar Lead Data: Type: Active fixation lead Appraisal Coordinator: [employer] Model #: 5076-58 Serial #: [id number] Stimulation Thresholds: Right atrial bipolar lead pacing and sensing thresholds Voltage: 0.5 Impedance: 817 ohms P-wave sensin.5 mV Right Ventricular bipolar lead pacing and sensing thresholds Pulse Width: 0.4ms Voltage: 1.1 volts Impedance: 741 ohms R-wave sensing: Paced rhythm Parameter Setting: Pacing mode is DDD Lower rate 60 bpm Upper rate 130 bpm Impressions: 1. Successful implantation of a dual chamber permanent pacemaker in the left pectoral site. Plan: 1. Routine post procedure care will be instituted as well as outpatient follow- up surveillance.
--- NOTE | 2022-10-16 18:04 | XR ---
EXAMINATION TYPE: XR chest 1V portable DATE OF EXAM: 10/16/2022 5:29 PM COMPARISON: Chest radiographs from 10/14/2022 TECHNIQUE: XR chest 1V portable Frontal view of the chest. CLINICAL INDICATION:Male, 77 years old with history of Lead placement check; FINDINGS: Lungs/Pleura: There is no evidence of pleural effusion, focal consolidation, or pneumothorax. Pulmonary vascularity: Unremarkable. Heart/mediastinum: Cardiomediastinal silhouette is unremarkable. Two lead cardiac conduction device o verlying the left hemithorax with lead tips projecting over the right ventricle and right atrium. Musculoskeletal: No acute osseous pathology. IMPRESSION: Leads appear in appropriate position.
[2022-10-16] MEDS: SODIUM CHLORIDE 0.9% 1,000 ML IV SCH (19:34)
[2022-10-16] MEDS: ATORVASTATIN 40 MG TAB PO SCH (20:51)
--- NOTE | 2022-10-17 09:18 | P.PN ---
Subjective Progress Note Date: 10/17/22 The patient is a pleasant 77-year-old gentleman who sees Dr. Ahuja with a past medical history significant for no one mild to moderate nonobstructive CAD based on heart catheterization recently as well as hypertension and dyslipidemia who presented to the hospital after he was advised to go because of "low heart rate". The patient was seen at his primary care physician office and he underwent vital signs measurements and he was found to have low heart rate and low blood pressure. At that point an EKG was performed and the patient was sent to the hospital with the EKG from the hospital revealed what it seems to be complete heart block with narrow complex QRS. The patient reports no dizziness or lightheadedness or presyncope or syncope and no symptoms of chest pain or chest discomfort but he feels tired and fatigued and has no energy. He was receiving any miriam irma agents was metoprolol but the last dose was given more than 3 days ago. The rest of the blood work came in to be unremarkable. Currently he is asymptomatic. Currently he is medically stable beside marginally low blood pressure on one measurements. TSH and free T4 were checked and came in to be unremarkable. Echo still pending. The examination is remarkable for regular rhythm with clear breathing sounds bilaterally and no lower extremity edema noted. Assessment Complete heart block s/p Dual chamber PPM Bradycardia secondary to complete heart block Symptoms of fatigue and tiredness secondary to the above Coronary artery disease nonobstructive on recent heart catheterization Multiple comorbid conditions including hypertension and dyslipidemia Plan patient is doing well from cardiovascular standpoint. he is an appropriate AV paced rhythm. chest x-ray does not show any pneumothorax or any acute cardiopulmonary process his echocardiogram shows normal LV size and systolic function with no signi ficant valvular heart disease. Once he is evaluated by [facility] for a pacemaker check and if everything is normal patient is okay to go home from cardiac vessel standpoint with outpatient follow-up in 7 days for PPM device check and staple removal. Patient is advised not to take that shower near the PPM area into the papito are removed Objective - Vital Signs Vital signs: Vital Signs Temp 97.9 F 10/17/22 04:00 Pulse 66 10/17/22 07:00 Resp 18 10/17/22 07:00 BP 145/75 10/17/22 07:00 Pulse Ox 96 10/17/22 07:00 FiO2 Intake & Output 10/16/22 10/17/22 10/17/22 18:59 06:59 18:59 Intake Total 470 240 Output Total 875 250 Balance -405 -10 Weight 99.8 kg Intake: IV 450 240 Sodium Chloride 0.9% 1, 200 240 000 ml @ 20 mls/hr IV . Q24H SAMANTA Rx#:[id number] Intake, IV Titration 20 Amount Sodium Chloride 0.9% 1, 20 000 ml @ 20 mls/hr IV . Q24H SAMANTA Rx#:[id number] Output: Urine 425 250 Emesis 450 Other: Voiding Method Urinal Urinal # Voids 1 - Labs CBC & Chem 7: 10/15/22 11:03 10/15/22 11:03
[2022-10-17 09:21] VITALS: TEMP 98.1
--- NOTE | 2022-10-17 10:50 | P.DS ---
Providers Date of admission: 10/14/22 16:12 Expected date of discharge: 10/17/22 Attending physician: Gabi Barksdale DO Consults: 10/14/22 16:12 Consult Physician Urgent Consulting Provider: Arsh Campbell Consult Reason/Comments: heart block Do you want consulting provider notified?: Already Contacted Primary care physician: Manolo Torres [facility] Hospital Course: Bradyacardia with complete heart block HTN HLD Recent right shoulder strain Hospital Course: Patient is a 68-year-old male with history of hypertension, dyslipidemia, and prior tobacco abuse who presented to the ER at the direction of Dr. Torres due to bradycardia. On arrival to the ER his heart rate was 35 and blood pressure was 151/60. Laboratory analysis was remarkable for BUN of 21, troponin was negative at less than 0.012. Chest x-ray showed chronic changes without any acute process. EKG showed HR of 33 with high grade AV block. The ED physician called cardiology and arrangements were made for admission. He was monitored overnight and continued to be in third-degree heart block. He was seen by cardiology who recommended temporary venous pacemaker followed by permanent pacemaker. The temporary venous pacemaker was placed on 10/15, and patient reported resolution of his dizziness after this was placed. Patient had PPM placed on 10/16. He was doing well on POD following procedure and was cleared for discharge by cardiology with f/u in 7 days. I spent 38 minutes coordinating this discharge on 10/17 General: nontoxic, no distress, appears at stated age Lungs: symmetric chest expansion , no accessory muscle use Abdominal: soft, nontender to palpation, no guarding Ext: no gross muscle atrophy, no edema b/l lower extremities, no contractures Neuro: CN II-XI grossly intact, no focal neuro deficits Psych: Alert, oriented, appropriate affect Patient Condition at Discharge: Good Plan - Discharge Summary New Discharge Prescriptions: Continue Cholecalciferol [Vitamin D3 (25 Mcg = 1000 Iu)] 25 mcg PO DAILY [place]-3/Dha/Epa/Fish Oil [Fish Oil 1,000 mg Softgel] 1 cap PO DAILY Multivitamins, Thera [Multivitamin (formulary)] 1 tab PO DAILY methylPREDNISolone Dose Pack [Medrol Dose Pack] See Taper PO DIRECTED Lisinopril-Hctz 20-12.5 mg [Zestoretic 20-12.5] 1 tab PO DAILY Zinc Gluconate [Zinc] 50 mg PO DAILY Atorvastatin [Lipitor] 40 mg PO HS Discharge Medication List Cholecalciferol [Vitamin D3 (25 Mcg = 1000 Iu)] 25 mcg PO DAILY 08/23/21 [History] Lisinopril-Hctz 20-12.5 mg [Zestoretic 20-12.5] 1 tab PO DAILY 08/23/21 [History] [place]-3/Dha/Epa/Fish Oil [Fish Oil 1,000 mg Softgel] 1 cap PO DAILY 08/23/21 [History] Atorvastatin [Lipitor] 40 mg PO HS 10/14/22 [History] Multivitamins, Thera [Multivitamin (formulary)] 1 tab PO DAILY 10/14/22 [History] Zinc Gluconate [Zinc] 50 mg PO DAILY 10/14/22 [History] methylPREDNISolone Dose Pack [Medrol Dose Pack] See Taper PO DIRECTED 10/14/22 [History] Follow up Appointment(s)/Referral(s): [facility], [NON-STAFF] - 1 Week ([facility] will call you to arrange a visit) Balbir Frey DO [STAFF PHYSICIAN] - 1 Week Manolo Torres DO [Primary Care Provider] - 1-2 days Discharge Disposition: HOME SELF-CARE
[2022-10-17 11:49] VITALS: BP 131/70; PULSE 64; RESP 15
== END 2022-10-17 13:48 | disposition home health service (06) | DRG 244 ==
LOC: EC 12:07 → 3SCARD 16:12 → 2SICU 10-15 09:15
PROVIDERS: ADMIT Internal Medicine; ATTEND Internal Medicine
PROC: 02H63JZ Insertion of Pacemaker Lead into Right Atrium, Percutaneous Approach (ICD-10-PCS; principal; 2022-10-15 12:22)
PROC: 02HK3JZ Insertion of Pacemaker Lead into Right Ventricle, Percutaneous Approach (ICD-10-PCS; principal; 2022-10-15 12:22)
PROC: 0JH606Z Insertion of Pacemaker, Dual Chamber into Chest Subcutaneous Tissue and Fascia, Open Approach (ICD-10-PCS; principal; 2022-10-15 12:22)
PROC: 5A1223Z Performance of Cardiac Pacing, Continuous (ICD-10-PCS; 2022-10-15 12:22)
DX: I44.2 Atrioventricular block, complete (principal); E78.5 Hyperlipidemia, unspecified; I25.10 Atherosclerotic heart disease of native coronary artery without angina pectoris; I10 Essential (primary) hypertension; S46.911A Strain of unspecified muscle, fascia and tendon at shoulder and upper arm level, right arm, initial encounter; Z79.82 Long term (current) use of aspirin; Z79.899 Other long term (current) drug therapy; Z87.891 Personal history of nicotine dependence
CPT/HCPCS: 33208; 33210; 36415; 71045; 76937; 80048; 80053; 83735; 84439; 84443; 84481; 84484; 85025; 85027; 85610; 85730; 93005; 93306; 99285